=== PATIENT | female | born 1990 | race Hispanic/Latino ===

== ENCOUNTER 2020-02-14 12:10 | Day surgery (SDC) ==
[2020-02-14 12:53] VITALS: BMI 27.1
[2020-02-14] MEDS ORDERED: hydrALAZINE 20 MG/ML VIAL SLOW IVP PRN (13:12)
--- NOTE | 2020-02-14 16:31 | PDOC.LDHP ---
Labor and Delivery H&P Chief complaint: contractions HPI: 29 y/o G1 at 39w5d, patient of Dr. Kennedy, presents with irregular ctx for the last 2 days. Rates pain 6/10. Denies VB, LOF, PIH sx, URI sx or UTI sx. Denies any other issues. ROS neg for HEENT, cv, pulm, gi, gu, neuro, psych, skin, musculoskeletal or constitutional symptoms other than mentioned above. OB History Details: First Current complications: none Past Medical History: denies Current medications: pre-elaine vitamins Previous surgical history: none Allergies/Adverse Reactions: Allergies Allergy/AdvReac Type Severity Reaction Status Date / Time No Known Allergies Allergy Verified 02/14/20 12:46 Social history: none - Physical Exam Vital signs reviewed and normal: yes Abnormal vital signs: Temp of 100.1 General: NAD, resting Lungs: nonlabored breathing Abdomen: gravid Extremeties: no edema FHT: category 1 (145, mod variability, + accels, no decels) [place] contractions every: 2-6 mins - Vaginal Exam cm dilated: 0 (unchanged after 1.5 hours) Effacement: 0% Station: -3 - Assessment 29 y/o G1 at 39w5d with no e/o active labor. Unchanged after 1.5 hours. Covid swab pending. - Plan -: D/c home with precautions. Advised to keep appointment on as scheduled or return with worsening of symptoms.
[2020-02-14 18:29] LABS: SARS-CoV-2 MS2 Positive; SARS-CoV-2 N Gene Negative; SARS-CoV-2 S Gene Negative; SARS-CoV-2 by NAA Not Detected (NotDetected); SARS-CoV-2 orf1ab Negative
== END 2020-02-14 15:50 | disposition home health service (06) ==
LOC: L&D/OP 12:10
PROVIDERS: ATTEND Obstetrics & Gynecology
DX: O47.1 False labor at or after 37 completed weeks of gestation (principal); Z3A.39 39 weeks gestation of pregnancy; Z20.828 Contact with and (suspected) exposure to other viral communicable diseases
CPT/HCPCS: 87635; U0003

== ENCOUNTER 2020-02-15 05:30 | Day surgery (SDC) ==
[2020-02-15 05:55] VITALS: BP 119/81; TEMP 98; BMI 29.9
[2020-02-15] MEDS ORDERED: Morphine 10 MG/ML VIAL IM SCH (08:45)
[2020-02-15] MEDS ORDERED: Promethazine HCl 25 MG/ML VIAL IM SCH (08:45)
[2020-02-15] MEDS ORDERED: Morphine 4 MG/ML VIAL SLOW IVP SCH (08:45)
[2020-02-15] MEDS ORDERED: hydrALAZINE 20 MG/ML VIAL SLOW IVP PRN (08:48)
--- NOTE | 2020-02-15 11:04 | PRG ---
DATE OF SERVICE: 02/15/2020 PRIMARY OB: Dr. Sagar Kennedy. CHIEF COMPLAINT: Abdominal pains. HISTORY OF PRESENT ILLNESS: The patient is a 29-year-old, G1, P0, female, with an intrauterine at 39 weeks and 6 days, presenting to Labor and Delivery with complaints of irregular contractions for the last couple of days. She reports that her pain with the contractions has gotten severe. She also reports pain with activity and movement and ambulating and lifting. She feels a lot of pressure down in her pelvis and pressure on her bladder. The patient reports that she has been losing her mucus plug. Denies any vaginal bleeding or leakage of fluid. She denies fever, cough, headache, chest pain, shortness of breath, nausea, vomiting, diarrhea, constipation, new rashes, hip problems, knee problems, or muscle weakness. PAST MEDICAL HISTORY: Negative. PAST SURGICAL HISTORY: Negative. ALLERGIES: NO KNOWN DRUG ALLERGIES. SOCIAL HISTORY: The patient reports a history of tobacco use, but has not been smoking since she found out she was . OB LABS: Blood type A negative, antibody screen is negative. VDRL nonreactive in the first and third trimester. HIV nonreactive in the first and third trimester. GC and Chlamydia, negative. She is rubella immune. Drug screen is positive for marijuana. Diabetes screen is 124. She is GBS negative. REVIEW OF SYSTEMS: Per HPI. PHYSICAL EXAMINATION: VITAL SIGNS: Blood pressure 119/81, heart rate of 96, respiratory rate of 20, temperature 98.0. GENERAL: She appears to be uncomfortable and in pain with her contractions. She is otherwise alert, oriented, cooperative, and pleasant to interact with. HEAD: Normocephalic and atraumatic. LUNGS: Clear to auscultation bilaterally. HEART: Has a regular rate and rhythm. ABDOMEN: Gravid and soft. Her pain seems to primarily be elicited with lifting and deviation of the uterus down from her lower pelvis. EXTREMITIES: Nontender. She does have some pedal edema. : Cervix is unchanged at 1, 50, -3 station, between 6 o'clock and 8 o'clock. heart tracing shows the fetus with a baseline in the 130s with positive 15 x 15 accelerations, no decelerations. Contractions looked to be about every 6 to 10 minutes. ASSESSMENT AND PLAN: The patient is a 29-year-old female, G1, P0, with an intrauterine at 39 weeks and 6 days. Fetus is category 1 tracing, reactive NST. The patient has no evidence of active labor. However, the patient is in significant amount of pain, primarily from this ligament pain in her lower pelvis. The patient has been counseled on the use of a belt to maybe give some relief. We also have given the patient relief with IM and IV morphine. She has had 4 IV of morphine and 6 IM with 25 of Phenergan IM. The patient feels significantly better and is comfortable going home now. The patient has appointment tomorrow morning with her primary OB, Dr. Sagar Kennedy. She has been given term labor precautions. Please note, bedside ultrasound was performed for fluid levels and the patient grossly appears to have adequate fluid with several pockets greater than 2 x 2 cm and one pocket roughly 6 cm. Job ID: [id number]
== END 2020-02-15 10:35 | disposition home health service (06) ==
LOC: L&D/OP 05:30
PROVIDERS: ATTEND Obstetrics & Gynecology
DX: O47.1 False labor at or after 37 completed weeks of gestation (principal); Z3A.39 39 weeks gestation of pregnancy; Z87.891 Personal history of nicotine dependence
CPT/HCPCS: 59025; 96360; 96372; 96374; 99283; J2270; J2550

== ENCOUNTER 2020-02-16 10:30 | Inpatient (IN) | payer SELFPAY ==
[2020-02-16] MEDS ORDERED: Ondansetron PF 4 MG/2 ML Vial IVP PRN (11:27)
[2020-02-16] MEDS ORDERED: Promethazine HCl 25 MG/ML VIAL IM PRN (11:27)
[2020-02-16] MEDS ORDERED: hydrALAZINE 20 MG/ML VIAL SLOW IVP PRN (11:27)
[2020-02-16] MEDS ORDERED: NS / Oxytocin 40 units/1000ml 1,000 ML IV PRN (11:27)
[2020-02-16] MEDS ORDERED: HYDROcodone/Acetaminophen 5/325 mg Tablet PO PRN ×2 (11:27)
[2020-02-16] MEDS ORDERED: Ibuprofen 800 MG TAB PO PRN (11:27)
[2020-02-16] MEDS ORDERED: Lidocaine 1% (PF) 30 ML VIAL SC PRN (11:27)
[2020-02-16] MEDS ORDERED: Butorphanol Tartrate 1 MG/ML VIAL SLOW IVP PRN (11:27)
[2020-02-16] MEDS ORDERED: NS w/ Oxytocin 10 units 500 ML IV SCH ×2 (11:30)
--- NOTE | 2020-02-16 11:36 | PDOC.LDHP ---
Labor and Delivery H&P Chief complaint: contractions HPI: Pt seen in the office w painful ctx q 4 mins and SVE 3cm. Current gestational age (weeks): 40 Due date: 02/16/20 Dating criteria: last menstrual period, first trimester ultrasound Grav: 1 Para: 0 OB History Details: none Current complications: none Abnormal US findings: No Current medications: pre- vitamins Previous surgical history: none Allergies/Adverse Reactions: Allergies Allergy/AdvReac Type Severity Reaction Status Date / Time No Known Allergies Allergy Verified 02/15/20 06:07 Social history: none - Physical Exam Vital signs reviewed and normal: yes General: breathing through contractions Heart: RRR Lungs: CTAB Abdomen: gravid Extremeties: no edema - Vaginal Exam cm dilated: 3 Effacement: 75% Station: -2 - OB Labs Blood type: A RH: negative Antibody Screen: negative HIV: negative RPR: negative HEPSAg: negative 1 hour GCT: negative GBS: negative Urine drug screen: positive (THC at first visit) Rubella: immune - Assessment L&D Assessment: term patient in labor - Plan Plan: admit to L&D, labor augmentation if indicated, informed consent obtained, anesthesia consult for pain management
[2020-02-16 11:47] LABS: Hemoglobin 12.5 g/dL (12.0-16.0); Mean Corpuscular HGB CONC 33.4 g/dL (32.0-36.0); Mean Corpuscular Hemoglobin 26.2 pg (27.0-31.0); Mean Corpuscular Volume 78.5 fL (78.0-98.0); Mean Platelet Volume 9.6 fL (7.4-10.4); Platelet Count 255 thou/uL (130-400); RBC Distribution Width 14.8 % (11.5-14.5); Red Blood Cell (RBC) Count 4.78 mill/uL (4.20-5.40); White Blood Cell (WBC) Count 10.4 thou/uL (4.8-10.8)
[2020-02-16] MEDS ORDERED: DISCONTINUE ALL PREVIOUS NARCOTICS FS SCH (12:00)
[2020-02-16] MEDS ORDERED: Bupivacaine 0.25% HCL 30 ML VIAL ONE (12:26)
[2020-02-16] MEDS ORDERED: Sodium Chloride 0.9% (PF) 10 ML VIAL ONE (12:26)
[2020-02-16] MEDS ORDERED: Bupivacaine PF 0.5% 30 ML VIAL ONE (12:26)
[2020-02-16 12:29] LABS: Hep B Surf Ag Non-Reactive S/CO (NonReactive)
[2020-02-16 12:30] LABS: Syphilis Antibody Nonreactive (Nonreactive); Syphilis Antibody Index 0.01 S/CO (<1.00 Non-Reactive)
[2020-02-16 12:38] VITALS: BMI 28.9
[2020-02-16] MEDS: Lactated Ringer's 1,000 ML IV SCH ×2 (15:04→23:03)
[2020-02-16] MEDS: Bupivacaine 0.5% 20 ML, fentaNYL Citrate/PF 400 MCG in Sodium Chloride 0.9% 72 ML EPIDURAL SCH ×2 (15:05→22:58)
--- NOTE | 2020-02-16 16:54 | PDOC.LDPN ---
Labor & Delivery Progress Note - Subjective Subjective: comfortable - Objective Vital signs reviewed and normal: yes General: resting Dilation: 5 Effacement: 90% Station: -1 FHT: category 1 AROM: meconium stained fluid (thin mec noted at last exam w AROM) IUPC placed: yes - Assessment (1) 40 weeks gestation of Code(s): Z3A.40 - 40 WEEKS GESTATION OF Current Visit: Yes Status: Acute Plan: continue plan of care, labor augmentation
[2020-02-17] MEDS: Lactated Ringer's 1,000 ML IV SCH (04:52)
[2020-02-17] MEDS ORDERED: Acetaminophen 500 MG TAB PO PRN (05:41)
[2020-02-17] MEDS: Ampicillin 2 GM in Sodium Chloride 0.9% 100 ML IVPB SCH ×4 (05:55→23:50)
[2020-02-17] MEDS ORDERED: Gentamicin 80 MG/2 ML VIAL IM SCH (06:00)
[2020-02-17] MEDS ORDERED: Gentamicin 80 MG/2 ML VIAL IVPB SCH (06:00)
--- NOTE | 2020-02-17 06:11 | PRG ---
DATE OF SERVICE: 02/17/2020 TIME OF SERVICE: 0530. SUBJECTIVE: The patient has been slowly progressing through labor to overnight with Pitocin in the 6 to 16 milliunits per minute range. Fetus has remained category 1, however, has developed some mild tachycardia to 160 to 170 and decreased variability over the past hour. No late decelerations are noted. The patient is noted to have a temperature 100.1 and feels warm on exam. PHYSICAL EXAMINATION: Reveals a very small amount of anterior lip of the maternal cervix from 12 to 3 o'clock, DANN presentation, and +2 station. IMPRESSION: Chorioamnionitis, group B strep negative, status post artificial rupture of membranes approximately 15 hours ago, now approaching second stage of labor. PLAN: 1. Tylenol. 2. Ampicillin and gentamicin. 3. Begin pushing. 4. Anticipate spontaneous vaginal delivery. Job ID: [id number]
[2020-02-17] MEDS: Gentamicin Sulfate 80 MG in Premix Bag 1 BAG IVPB SCH ×3 (06:43→22:20)
--- NOTE | 2020-02-17 08:36 | PDOC.LDPN ---
Labor & Delivery Progress Note - Subjective Subjective: comfortable - Objective Vital signs reviewed and normal: yes General: breathing through contractions Dilation: 10 Station: 3+ FHT: category 1 - Assessment (1) 40 weeks gestation of Code(s): Z3A.40 - 40 WEEKS GESTATION OF Current Visit: Yes Status: Acute Plan: other (pushing w patient, maternal exhaustion/limited pushing efforts noted, may professor of counseling for VAVD)
[2020-02-17] MEDS ORDERED: Tranexamic Acid 1,000 MG/10 ML VIAL ONE (09:22)
[2020-02-17] MEDS ORDERED: Misoprostol 200 MCG TAB ONE (09:22)
--- NOTE | 2020-02-17 09:46 | PDOC.OPDEL ---
OB Operative/Delivery Note Delivery Dr/Surgeon: Brent Pre-Delivery Diagnosis: active labor Procedure/Post Delivery Dx: operative vaginal delivery (VAVD) Weeks gestation: 40 Anesthesia: epidural - Findings A Sex: female - Additional Findings/Plan Placenta delivered: manual removal (after cord separation) Repaired Obstetrical Laceration: 2nd degree Estimated blood loss: 550ml Compilations/Other Findings: Operative delivery Informed consent was obtained, risk and benefits reviewed with mom and family member. Indication for VAVD-maternal exhaustion/poor pushing efforts @ 3hrs pushing and +3 station Mushroom cup vacuum applied to the flexion point of the head. Vagina inspected with application and no vaginal tissue trapped in the cup. The patient had a vaginal delivery after an approximate 5 mins of vacuum placement which included 2 push/pulls, each pull approximately one minute. The vacuum cup was removed after the head was delivered over the perineum. No pop offs. After delivery of the head a shoulder dystocia was diagnosed. The body delivered with McRobert's and suprapubic pressure applied by RN. Right shoulder in the anterior position. NICU at bedside for evaluation of infant. Good cry, skin to skin accomplished. Cord separation noted immediately with attempt to delivery the placenta. The placenta was manually removed as one intact piece without difficulty. Methergine and cytotec ordered and in the room for anticipation of PPH based on patient labor course, both were given. Fundus firm during repair of 2nd degree laceration. Post delivery plan: routine recovery
[2020-02-17] MEDS ORDERED: Bisacodyl 10 MG SUPP PR PRN (10:58)
[2020-02-17] MEDS ORDERED: NS / Oxytocin 40 units/1000ml 1,000 ML IV SCH (10:58)
[2020-02-17] MEDS ORDERED: diphenhydrAMINE 25 MG CAP PO PRN (10:58)
[2020-02-17] MEDS ORDERED: Milk Of Magnesia 30 ML UDCUP PO PRN (10:58)
[2020-02-17] MEDS ORDERED: HYDROcodone/Acetaminophen 5/325 mg Tablet PO PRN (10:58)
[2020-02-17] MEDS ORDERED: hydrALAZINE 20 MG/ML VIAL SLOW IVP PRN (10:58)
[2020-02-17] MEDS ORDERED: Benzocaine-Menthol 82.5 ML CAN TOP PRN (10:58)
[2020-02-17] MEDS ORDERED: Adacel (T-DAP) 0.5 ML SYRINGE IM ONE (10:58)
[2020-02-17] MEDS ORDERED: Preparation H Ointment 28 GM TUBE PR PRN (10:58)
[2020-02-17] MEDS ORDERED: Ondansetron PF 4 MG/2 ML Vial IVP PRN (10:58)
[2020-02-17] MEDS ORDERED: Lanolin Ointment 7 GM TUBE TOP PRN (10:58)
[2020-02-17] MEDS: Ibuprofen 800 MG TAB PO SCH ×2 (14:20→22:22)
[2020-02-17] MEDS: HYDROcodone/Acetaminophen 5/325 mg Tablet PO PRN ×2 (15:17→22:20)
[2020-02-17] MEDS: Ferrous Sulfate 325 MG TAB PO SCH (17:08)
[2020-02-17] MEDS: Docusate Calcium (SURFAK) 240 MG CAP PO SCH (22:20)
[2020-02-18] MEDS: Ampicillin 2 GM in Sodium Chloride 0.9% 100 ML IVPB SCH (06:00)
[2020-02-18 06:07] LABS: Hemoglobin 8.7 g/dL (12.0-16.0)
[2020-02-18] MEDS: Gentamicin Sulfate 80 MG in Premix Bag 1 BAG IVPB SCH (06:40)
[2020-02-18] MEDS: Ibuprofen 800 MG TAB PO SCH ×5 (06:42→21:25)
[2020-02-18] MEDS ORDERED: Furosemide 20 MG/2 ML VIAL SLOW IVP SCH (08:00)
--- NOTE | 2020-02-18 08:18 | PRG ---
DATE OF SERVICE: 02/18/2020 PRIMARY OB: Sagar Kennedy DO, MS SUBJECTIVE: The patient is day #1, status post a vacuum-assisted vaginal delivery, complicated by shoulder dystocia and chorioamnionitis. The patient has been on ampicillin and gentamicin over the last day. This morning, the patient reports she has had difficulty walking due to leg and foot pain, and believes it is from all the swelling she has. She reports that her labial swelling, though still present and quite profound, has actually getting better. The patient is tolerating a diet, ambulating, and is voiding on her own. OBJECTIVE: VITAL SIGNS: Blood pressure this morning 113/68, temperature 98.8, pulse of 76, respiratory rate of 18. GENERAL: She appears to be in no acute distress. She is alert, oriented, cooperative, and pleasant to interact with. HEAD: Normocephalic, atraumatic. FUNDUS: Firm. EXTREMITIES: She has quite significant pedal edema and some pretibial edema. VULVA: Massively swollen more on the left than on the right. Palpating this extremely swollen labia, I do not feel any signs of a developing or enlarged hematoma. It appears to be just strictly edema. LABORATORY DATA: This morning, hemoglobin is 8.7, hematocrit 25.1. ASSESSMENT AND PLAN: The patient is day #1, status post a vacuum-assisted vaginal delivery, complicated by chorioamnionitis and extreme labial swelling. We have discontinued her ampicillin and gentamicin this morning as the patient has remained afebrile and is nontender. I have ordered 20 of Lasix IV x1 to assist with resolution of this edema, both the labial and lower extremity. The patient will continue care and will be re-evaluated for possible discharge tomorrow. Job ID: [id number]
[2020-02-18] MEDS: Docusate Calcium (SURFAK) 240 MG CAP PO SCH ×2 (08:41→21:25)
[2020-02-18] MEDS: Ferrous Sulfate 325 MG TAB PO SCH ×2 (08:41→17:01)
[2020-02-18] MEDS: Prenatal Vitamin 1 TAB PO SCH (08:41)
[2020-02-18] MEDS ORDERED: Preparation H Ointment 57 gram tube RC PRN (17:09)
[2020-02-18] MEDS ORDERED: Preparation H Ointment 28 GM TUBE PR PRN (17:22)
[2020-02-19] MEDS: Ibuprofen 800 MG TAB PO SCH (05:08)
--- NOTE | 2020-02-19 07:28 | PDOC.PP ---
Post Progress Note Post Day #: 2 PO intake tolerated: yes Flatus: yes Ambulation: yes Vital Signs (12 hours) Temp Pulse Resp BP 02/18/20 20:43 98.2 F 82 18 115/71 Weight Weight 71.668 kg - Physical Examination General: NAD Cardiovascular: no m/r/g, RRR Respiratory: clear to auscultation bilaterally, non-labored breathing Abdominal: + bowel sounds, lochia, no distention, appropriately TTP Neurological: no gross focal deficits Psychiatric: A&Ox3, normal affect Result Diagrams: 02/18/20 05:41 Additional Labs: Post Labs Hep Bs Antigen Non-Reactive S/CO (NonReactive) 02/16/20 11:28 Blood Type A NEGATIVE 02/16/20 12:10 (1) Vacuum-assisted vaginal delivery Code(s): Z37.9 - OUTCOME OF DELIVERY, UNSPECIFIED Status: Acute - Assessment/Plan PPD #2 s/p VAVD 02/16 - Routine recovery - required 1x dose of lasix for swelling. - d/c home today with routine f/u. Chorioamnionitis - s/p ampicillin and gentamicin. - has remained afebrile. VSS. D/c home today with routine f/u with PCP. Discussed plan with Dr. Proctor attending. Jesús VIVEROS PGY2
--- NOTE | 2020-02-19 08:21 | PDOC.BPN ---
- Brief Progress Note At Check out: Dr Rivers has ordered a leg right doppler for swelling. Exam is otherwise neg except swelling, per Mar. Await doppler result on right leg before dsch. Labia also swollen bilaterally but no hematoma per Dr Proctor.
[2020-02-19 08:40] VITALS: BP 135/77; TEMP 97.8
[2020-02-19] MEDS: Prenatal Vitamin 1 TAB PO SCH (08:41)
[2020-02-19] MEDS: Docusate Calcium (SURFAK) 240 MG CAP PO SCH (08:41)
[2020-02-19] MEDS: Ferrous Sulfate 325 MG TAB PO SCH (08:42)
--- NOTE | 2020-02-19 09:22 | PDOC.BPN ---
<Puja Turner - Last Filed: 02/19/20 09:22> - Brief Progress Note Doppler negative for DVT will place d/c home <Raymundo Flores - Last Filed: 02/19/20 09:39> - Brief Progress Note Faculty: Noted. Agree with DC home. Vitals ok
--- NOTE | 2020-02-19 10:46 | ULT ---
RIGHT LOWER EXTREMITY VENOUS ULTRASOUND: Date: 02/19/2020 HISTORY: Right lower extremity edema status post delivery. TECHNIQUE: Multiplanar Sanders scale and color Doppler images were obtained in a right lower extremity venous ultra sound. Spectral analysis of the Doppler waveforms were performed. FINDINGS: The right common femoral vein, profunda femoral vein, superficial femoral vein, and popliteal vein ar e normal in appearance without visible thrombus. These vessels demonstrate normal compression, flow, and augmentation. The posterior tibial vein and greater saphenous vein are also patent. IMPRESSION: No evidence of deep venous thrombosis. POS: [facility]
== END 2020-02-19 10:45 | disposition home or self-care (01) | DRG 805 ==
LOC: L&D 10:30 → UNDOADMIN 10:30 → 3SW 02-17 12:12
PROVIDERS: ADMIT Obstetrics & Gynecology; ATTEND Obstetrics & Gynecology
PROC: 10D07Z6 Extraction of Products of Conception, Vacuum, Via Natural or Artificial Opening (ICD-10-PCS; principal; 2020-02-17)
PROC: 0KQM0ZZ Repair Perineum Muscle, Open Approach (ICD-10-PCS; 2020-02-17)
PROC: 10907ZC Drainage of Amniotic Fluid, Therapeutic from Products of Conception, Via Natural or Artificial Opening (ICD-10-PCS; 2020-02-17)
DX: O48.0 Post-term pregnancy (principal); O41.1230 Chorioamnionitis, third trimester, not applicable or unspecified; Z37.0 Single live birth; O77.0 Labor and delivery complicated by meconium in amniotic fluid; Z3A.40 40 weeks gestation of pregnancy; O70.1 Second degree perineal laceration during delivery
CPT/HCPCS: 36415; 51702; 85014; 85018; 85027; 85461; 86780; 86850; 86870; 86900; 86901; 87340; 90384; 96372; 99285; J0290; J1580; J1940; J2590; J3010; J3490; S0020